=== PATIENT | male | born 1950 | race Two or more races ===

== ENCOUNTER 2025-09-02 11:01 | Inpatient (IN) | payer OTHER, SELFPAY ==
[2025-09-02] VITALS (17 sets, daily range): BP systolic 117–148; BP diastolic 70–86; BMI 25.9; BMI 25.7
[2025-09-02 11:30] LABS: Glucose - Point of Care 145 mg/dl (70-99)
[2025-09-02] MEDS: NORMOSOL-R/PLASMALYTE-A 1000 IV (11:30)
[2025-09-02] MEDS: HEPARIN 5000 UNITS SC (11:36)
[2025-09-02] MEDS: TYLENOL 1000 MG PO (11:37)
[2025-09-02] MEDS: NEURONTIN 300 MG PO (11:37)
[2025-09-02 16:38] LABS: Glucose - Point of Care 199 mg/dl (70-99)
--- NOTE | 2025-09-02 16:39 | HPS.HSE ---
Family Physician
-
Family Physician: Nba Langston
Chief Complaint
-
elective liver resection
History of Present Illness
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
disease on subseqent imaging. During surgery was found to have liver nodule that was indeterminate for malignancy, so had partial liver resection.
Medical History
Past Medical History
Past Medical History: Reports Other
Additional Past Medical History:
see above
Past Surgical History: Reports Other
Additional Past Surgical History:
see above
Social History
Tobacco: Non-smoker
Alcohol: None
Drug: None
Family History
Family History: Not pertinent
Allergies / Home Medications
Allergies reflects when Allergies were last updated in [facility].
Home Medications with original date entered in [facility]
Allergy/Medication List:
Allergies
Allergy/AdvReac Type Severity Reaction Status Date / Time
No Known Allergies Allergy Verified 09/02/25 11:46
Home Medications
Fish Oil 1 cap PO DAILY High Cholesterol 08/26/25
amlodipine 5 mg tablet 5 mg PO DAILY Blood Pressure 08/26/25
aspirin 81 mg tablet,delayed release 81 mg PO DAILY Blood Clot Prevention/Tx 08/26/25
atorvastatin 10 mg tablet 10 mg PO HS High Cholesterol 08/26/25
carvedilol 25 mg tablet 25 mg PO BID Blood Pressure 08/26/25
colchicine 0.6 mg tablet 0.6 mg PO DAILY Gout 08/26/25
empagliflozin 10 mg tablet (Jardiance) 10 mg PO DAILY Diabetes 08/26/25
hydrochlorothiazide 25 mg tablet 25 mg PO DAILY Blood Pressure 08/26/25
losartan 100 mg tablet 100 mg PO DAILY Blood Pressure 08/26/25
metformin 500 mg tablet 500 mg PO BID Diabetes 08/26/25
vitamin E 1 cap PO BID Supplement 08/26/25
Review of Systems
-
History Source: Patient
A 12 point ROS was completed and negative except as noted: Yes
Constitutional: Reports No Symptoms
Physical Exam
Vital Signs
Vital Signs
Temp Pulse Resp BP Pulse Ox
98.3 F 63 18 140/83 99
09/02/25 11:17 09/02/25 11:17 09/02/25 11:17 09/02/25 11:17 09/02/25 11:17
Physical Exam
General: No Apparent Distress, Comfortable and Conversant
HEENT: NormoCephalic, Anicteric and Moist mucous membranes
Respiratory: Clear; No Wheezes or Crackles
Cardiac: S1/S2 and Regular Rhythm; No Tachycardia
GI: Non Tender, Distended and Other (dry dressing upon incision area)
Genito-urinary: Clear Urine and Heller
Musculoskeletal: No Clubbing, No Cyanosis and No Edema
Skin: Warm; No Rash or Jaundice
Neuro: Awake, Alert, Oriented and AO x 3
Psych: Calm
Data Reviewed
-
Old Records: Reviewed
Impression/Plan
-
A/P:
#Gallbladder CA s/p cholecystectomy
#Partial liver resection
postOP monitoring for bleeding
H&H q12h or more frequent if deterioration
ICU monitoring for 24h
PAth pending
Abx as per surgical service
Pain mgmt
Heller to remove SMITHA
#DM type 2 with nephropathy
Accuchecks, insulin SS, DM diet and hold oral antiglycemic
Check Hgba1c
#Essential HTN
#Gout
#MR
#CR
#BPH
Cont home meds
DVT ppx SCDs due to high risk bleeding surgery
Full code
I have spent at least 78min reviewing chart, test results, communication with consultants and providing direct patient care
[2025-09-02] MEDS: NOVOLOG vial 1 UNITS SC (17:28)
[2025-09-02 17:39] LABS: Hematocrit 34.9 % (39.0-52.0); Hemoglobin 11.8 g/dL (13.0-18.0); Mean Corp Hgb Conc. 33.8 g/dL (33.0-37.0); Mean Corpuscular Volume 84.7 fL (80.0-94.0); Nucleated Red Blood Cells % 0 % (-); Platelet Count 173 10^3/uL (130-400); Red Cell Dist. Width 15.8 % (11.5-14.5)
[2025-09-02 17:46] LABS: ALT (SGPT) 86 U/L (0-50); AST (SGOT) 188 U/L (17-59); Albumin 3.7 g/dl (3.5-5.0); Alkaline Phosphatase 57 U/L (38-126); Blood Urea Nitrogen 34 mg/dl (9-20); Calcium 8.7 mg/dl (8.4-10.2); Carbon Dioxide 23 mmol/L (22-30); Chloride 103 mmol/L (98-107); Estimated Creatinine Clearance 61 ml/min; Glucose 172 mg/dl (70-99); INR 1.02; Magnesium 1.7 mg/dl (1.6-2.3); PT 13.9 Sec (11.4-14.6); Potassium 4.2 mmol/L (3.5-5.1); Sodium 133 mmol/L (135-145); Total Protein 6.4 g/dl (6.3-8.2); eGFR > 60.00
[2025-09-02 17:47] LABS: APTT 29.3 Sec (23.4-35.0)
--- NOTE | 2025-09-02 19:32 | PTCARENOTE ---
received pt from PACU at 1800 , NSR on monitor , BP adequate with edelmira , 02 2L with sat 98% , mid line abd dressing with small amt of shadowing , dry and intact , pt denies co pain , labs noted , pt to remain NPO as per surgery , pt son at bedside
[2025-09-02] MEDS: COREG 25 MG PO (19:49)
[2025-09-02] MEDS: ZOSYN 50 IV (19:49)
[2025-09-02] MEDS: D5/0.9% SODIUM CHLORIDE 1000 IV (19:50)
[2025-09-02 19:56] LABS: Glucose - Point of Care 168 mg/dl (70-99)
[2025-09-02] MEDS: LIPITOR 10 MG PO (23:02)
[2025-09-02 23:04] LABS: Glucose - Point of Care 228 mg/dl (70-99)
[2025-09-03] VITALS: BP 109/74
[2025-09-03] MEDS: NOVOLOG FLEXPEN-LOW RESISTANCE 2 UNITS SC (00:05)
[2025-09-03] MEDS: ZOSYN 50 IV ×4 (00:06→18:34)
[2025-09-03 04:00] VITALS: BP 117/75
[2025-09-03 04:28] LABS: Hematocrit 35.9 % (39.0-52.0); Hemoglobin 12.1 g/dL (13.0-18.0); Mean Corp Hgb Conc. 33.7 g/dL (33.0-37.0); Mean Corpuscular Volume 86.5 fL (80.0-94.0); Nucleated Red Blood Cells % 0 % (-); Platelet Count 190 10^3/uL (130-400); Red Cell Dist. Width 15.9 % (11.5-14.5)
[2025-09-03 04:31] LABS: INR 1.10; PT 14.7 Sec (11.4-14.6)
[2025-09-03 04:32] LABS: APTT 27.2 Sec (23.4-35.0)
[2025-09-03 04:50] LABS: ALT (SGPT) 98 U/L (0-50); AST (SGOT) 166 U/L (17-59); Albumin 3.8 g/dl (3.5-5.0); Alkaline Phosphatase 53 U/L (38-126); Blood Urea Nitrogen 32 mg/dl (9-20); Calcium 8.9 mg/dl (8.4-10.2); Carbon Dioxide 22 mmol/L (22-30); Chloride 106 mmol/L (98-107); Estimated Creatinine Clearance 50 ml/min; Glucose 200 mg/dl (70-99); Potassium 4.4 mmol/L (3.5-5.1); Sodium 136 mmol/L (135-145); Total Protein 6.4 g/dl (6.3-8.2); eGFR > 60.00
--- NOTE | 2025-09-03 05:29 | PTCARENOTE ---
Initial assessment as documented. Pt continues to deny pain. L radial a-line zeroed and transduced, correlates w/ cuff pressure. RA, using home CPAP overnight. Mantilla with approx 50-70ml/hr yellow urine. Midline abdominal aquacel with
shadowing--unchanged. Safe environment maintained, call slater within reach.
[2025-09-03 05:32] LABS: Glucose - Point of Care 258 mg/dl (70-99)
[2025-09-03] MEDS: NOVOLOG FLEXPEN-LOW RESISTANCE 3 UNITS SC (05:53)
[2025-09-03 06:00] VITALS: BMI 26.1
[2025-09-03] MEDS: ROXICODONE 5 MG PO ×2 (06:04→10:27)
--- NOTE | 2025-09-03 06:29 | PTCARENOTE ---
Pt c/o abdominal pain with movement, 7/10, PRN oxy given as ordered.
--- NOTE | 2025-09-03 07:11 | CON.INTV ---
Addendum entered and electronically signed by Kylah So MD 09/03/25 12:41:
- Patient transferring out of ICU
- Laboratory Animal Facility Supervisor service will sign off, please call as needed.
Original Note:
Consultation
Consultation Request
Date/Time Consultation Requested: 09/02/2025
Date/Time Consultation Performed: 09/03/2025
Medical History
-
Chief Complaint: Cholangiocarcinoma
History of Present Illness:
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 Subsequent workup included extensive imaging not suggestive of metastatic disease. He was evaluated by surgery
service as an outpatient and was recommended to have partial liver resection as well as lymph node dissection. Patient was admitted to the hospital for above procedure on 09/02 and postprocedure, was admitted to ICU. Laboratory Animal Facility Supervisor consult was
requested for further input.
Past medical history. Diabetes, hypertension, hyperlipidemia, sleep apnea, hepatic steatosis, dilation of ascending aortic area, chronic kidney disease, history of hematuria.
Surgical history. Cholecystectomy, left cataract surgery, hernia repair.
Family history. No reported history of lung cancer.
Social history. No history of smoking.
Allergies / Home Medications
Allergies
Allergy/AdvReac Type Severity Reaction Status Date / Time
No Known Allergies Allergy Verified 09/02/25 11:46
Home Medications
�Medication �Instructions �Recorded �Confirmed �Last Taken �Type
Fish Oil 1 cap PO DAILY High Cholesterol 08/26/25 09/02/25 08/19/25 History
amlodipine 5 mg tablet 5 mg PO DAILY Blood Pressure 08/26/25 09/02/25 09/02/25 08:00 History
aspirin 81 mg tablet,delayed 81 mg PO DAILY Blood Clot 08/26/25 09/02/25 08/26/25 History
release Prevention/Tx
atorvastatin 10 mg tablet 10 mg PO HS High Cholesterol 08/26/25 09/02/25 09/01/25 22:00 History
carvedilol 25 mg tablet 25 mg PO BID Blood Pressure 08/26/25 09/02/25 09/02/25 08:00 History
colchicine 0.6 mg tablet 0.6 mg PO DAILY Gout 08/26/25 09/02/25 09/01/25 08:00 History
empagliflozin 10 mg tablet 10 mg PO DAILY Diabetes 08/26/25 09/02/25 08/30/25 History
(Jardiance)
hydrochlorothiazide 25 mg tablet 25 mg PO DAILY Blood Pressure 08/26/25 09/02/25 09/01/25 08:00 History
losartan 100 mg tablet 100 mg PO DAILY Blood Pressure 08/26/25 09/02/25 09/01/25 08:00 History
metformin 500 mg tablet 500 mg PO BID Diabetes 08/26/25 09/02/25 09/01/25 22:00 History
vitamin E 1 cap PO BID Supplement 08/26/25 09/02/25 08/19/25 History
Review of Systems
-
Hematologic/Lymphatic: Other (All 14 systems reviewed and negative except as stated above in the history of present illness.)
Vitals / Labs / Diagnostic Testing
Vital Signs
Temp Pulse Resp BP Pulse Ox
98.2 F 64 17 117/75 98
09/03/25 03:15 09/03/25 06:00 09/03/25 06:00 09/03/25 04:00 09/03/25 06:00
Lab Data
09/03/25 04:06
09/03/25 04:06
Laboratory Results
09/02/25 09/02/25 09/02/25
17:19 17:19 17:19
PT 13.9 Cancelled
INR 1.02 Cancelled
APTT 29.3
09/02/25 09/03/25
17:19 04:06
PT 14.7 H
INR 1.10
APTT Cancelled 27.2
Microbiology
09/02/25 Unknown Gallbladder Gram Stain - Preliminary
Diagnostic Testing:
Physical Exam
-
HEENT: Normocephalic
Cardiovascular: S1/S2
Respiratory: Clear and Non-Labored Respirations
GI: Soft
Neurology: Awake
Skin: Warm
General: Comfortable
Assessment
-
Patient is a 75-year-old male with recent diagnosis of cholangiocarcinoma, s/p partial liver resection, by surgery service, POD #1
Continue observation following procedure
Follow serial exam and H/H
ASA and statin on board
Follow BP monitoring and parameters as set by primary team
Cardiac history reviewed
Monitor on telemetry
Pain control per protocol
RASS goal 0
No prior known history of pulmonary disease
No prior PFTs for review
Encouraged IS
Diet advancement per protocol
Aspiration precautions
GI prophylaxis: None
Cr reviewed. Slight rise noted, 1.0 > 1.2. Hold HCTZ and Losartan
Critical I/Os
Replete electrolytes as needed
No signs/symptoms suspicious for infectious etiology at this time
Has been on Zosyn post surgery.
Follow temperatures/CBC
Hb and platelets postoperatively stable. 11.8 > 12.1
DVT prophylaxis: SCDs. Defer to surgery service
Other medical diagnoses:
- Mitral valve regurgitation, trace
- HTN
- Ascending aortic root dilation
- HLD
- DM
- CR
Critical Care time [56] mins -- The patient is admitted for acute critical illness for the treatment of vital organ failure and/or prevention of further life-threatening conditions. Total care includes time spent in review of history, physical exam,
medications, hemodynamic/ventilator parameters, laboratory data, imaging and discussion with house staff, pharmacy, respiratory therapy, plumber's assistant, and nursing
Data:
ECHO 05/2021: There is normal left ventricular systolic function with an ejection fraction of
60-65% there is grade 1 diastolic dysfunction
There is normal chamber size.
There is aortic valve sclerosis, trace mitral regurgitation, mild tricuspid
regurgitation, and trace pulmonic regurgitation.
There is atherosclerosis present in the aortic root.
The ascending aorta is dilated at 4.3 cm
There is an echo lucency present in the liver measuring a diameter of 4 cm
which may represent a liver cyst however recommend clinical correlation and
evaluation.
--- NOTE | 2025-09-03 08:00 | PTCARENOTE ---
Assumed care of patient. Patient AAOx3, pleasant. SR on monitor. L radial A-line in place. Patient on room air w/ POX 98%. Patient's abdomen soft minimally tender/distended. Patient midline aquacell dressing with shadowing - mildly increased.
Patient's abdominal pain approximately 3-4. Patient's barrett draining clear yellow urine. Patient w/ 18G RFA w/ D5NS @75 mls/hr and 18G LFA.
[2025-09-03 08:37] LABS: Glycohemoglobin (HgbA1c) 5.9 % (4.0-5.6)
[2025-09-03] MEDS: COLCHICINE 0.6 MG PO (08:51)
[2025-09-03] MEDS: ASPIR LOW (ENTERIC COATED) 81 MG PO (08:51)
[2025-09-03] MEDS: COREG 25 MG PO ×2 (08:52→19:53)
[2025-09-03] MEDS: NORVASC 5 MG PO (08:52)
--- NOTE | 2025-09-03 10:27 | W.PN.HOSP.TC ---
Addendum entered and electronically signed by Ha Rodriguez MD 09/03/25 10:30:
#Transaminitis 2/2 liver resection
follow LFT
Original Note:
Today's Communication/Plan
-
further mgmt as per surgical service
Assessment / Plan
Assessment / Plan
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
disease on subsequent imaging. During surgery was found to have liver nodule that was indeterminate for malignancy, so had partial liver resection.
A/P:
#Gallbladder CA s/p cholecystectomy
#Partial liver resection
postOP monitoring for bleeding
H&H q12h or more frequent if deterioration - remained stble
ICU monitoring for 24h
PAth pending
Abx as per surgical service
Pain mgmt
Heller to remove SMITHA
#DM type 2 with nephropathy
Accuchecks, insulin SS, DM diet and hold oral antiglycemic
Check Hgba1c
#Essential HTN
#Gout
#MR
#CR
#BPH
Cont home meds
DVT ppx SCDs due to high risk bleeding surgery
Full code
I have spent at least 51min reviewing chart, test results, communication with consultants and providing direct patient care
Anticipated Discharge: > 48 hours
Subjective/Interval History
-
Date of Service: September 03, 2025
Objective Data
-
Labs:
Laboratory Results
09/03/25
04:06
WBC 7.1
Hgb 12.1 L
Hct 35.9 L
Plt Count 190
PT 14.7 H
INR 1.10
APTT 27.2
Sodium 136
Potassium 4.4
Chloride 106
Carbon Dioxide 22
BUN 32 H
Creatinine 1.2
Glucose 200 H
Calcium 8.9
Total Bilirubin 0.8
AST 166 H
ALT 98 H
Alkaline Phosphatase 53
Vital Signs:
Vital Signs
Temp Pulse Resp BP Pulse Ox
98.1 F 66 16 117/75 98
09/03/25 08:00 09/03/25 09:30 09/03/25 09:30 09/03/25 04:00 09/03/25 09:30
I&O
09/02/25 09/03/25 09/04/25
06:59 06:59 06:59
Intake Total 1125 / 1200 225 / 225
Output Total 1095 / 1095 385 / 385
Balance 30 / 105 -160 / -160
Review of Systems
-
History Source: Patient
All other systems: Reviewed and negative
Physical Exam
-
General: No Apparent Distress
HEENT: Normocephalic
Respiratory: Clear to Auscultation
Cardiac: Regular Rhythm
GI: Soft, Nondistended and Tender (at the incision site )
Musculoskeletal: No Clubbing, No Cyanosis and No Edema
Neuro: Awake, Alert, Oriented and AO x 3
Psych: Calm
[2025-09-03] MEDS: NSS 1000 IV (10:29)
--- NOTE | 2025-09-03 12:26 | W.PN.GENERIC ---
Assessment / Plan
-
S/p Partial liver resection of gallbladder cancer. POD#1
Stable
Will transfer the pt to the surgical floor
Start clears and advance as abhishek
OOB and ambulate
Await path results
Physician Progress Note
Subjective
No complaints. Some incisional pain when moving. No N/V
Objective
Vital Signs
Temp Pulse Resp BP Pulse Ox
98.7 F 66 16 117/75 98
09/03/25 12:00 09/03/25 09:30 09/03/25 09:30 09/03/25 04:00 09/03/25 09:30
Lab Results
09/03/25 04:06
09/03/25 04:06
Abdomen - incision is CDI. Soft and ND
[2025-09-03 12:48] LABS: Glucose - Point of Care 152 mg/dl (70-99)
[2025-09-03] MEDS: TORADOL 15 MG IV ×2 (12:53→18:33)
[2025-09-03 13:03] VITALS: BP 123/73
--- NOTE | 2025-09-03 13:21 | CM ---
Initial assessment completed with patient with daughter and son in room. Patient lives alone in a 1 story plus basement home with ramp to enter. HAND [employer]MBRE[employer]IP[employer] patient was independent in ADL's and ambulation with a SPC, drives. Has and uses a CPAP. No in-home
services. No HC POA, AD paperwork provided. No VA benefits. No psychiatric hospitalizations. PCP is Dr. Nba Langston. Pharmacy is [facility] in [place]. Discharge POC: Anticipate home with NN vs HH RN.
[2025-09-03] MEDS: NOVOLOG FLEXPEN-LOW RESISTANCE SC (14:18)
--- NOTE | 2025-09-03 14:31 | PTCARENOTE ---
Dr. Mosley at bedside and updated patient/family. Patient's aquacell dressing removed by Dr. Mosley - ian approximated. Patient's barrett removed - due to void @ 1930. Patient's A-Line removed. Patient downgraded to [facility] level of care.
[2025-09-03 15:51] VITALS: BP 138/71
[2025-09-03 17:19] LABS: Glucose - Point of Care 134 mg/dl (70-99)
--- NOTE | 2025-09-03 19:06 | PTCARENOTE ---
Patient transferred to [address] [place] [address] post partial liver resection for cancer.The patient is alert and oriented.He rates his pain at a 4 out of 10.Abdominal incision open to air with ian.The patient's daughter is with him.We talked about how to order
his meals.The patient is in his bed with the call slater in reach.
[2025-09-03] MEDS: GLUCOPHAGE 500 MG PO (19:53)
[2025-09-03] MEDS: LIPITOR 10 MG PO (22:12)
[2025-09-03 23:10] VITALS: BP 132/80
[2025-09-04] MEDS: TORADOL 15 MG IV ×4 (00:29→18:33)
[2025-09-04] MEDS: ZOSYN 50 IV ×4 (00:29→18:32)
[2025-09-04 00:35] LABS: Glucose - Point of Care 133 mg/dl (70-99)
[2025-09-04] MEDS: NSS 1000 IV (02:03)
[2025-09-04 07:00] VITALS: BP 135/73
[2025-09-04 07:56] LABS: Glucose - Point of Care 116 mg/dl (70-99)
[2025-09-04] MEDS: NORVASC 5 MG PO (08:00)
[2025-09-04] MEDS: COREG 25 MG PO ×2 (08:00→20:16)
[2025-09-04] MEDS: GLUCOPHAGE 500 MG PO ×2 (08:00→20:16)
[2025-09-04] MEDS: COLCHICINE 0.6 MG PO (08:00)
[2025-09-04 09:18] LABS: Hematocrit 31.8 % (39.0-52.0); Hemoglobin 10.2 g/dL (13.0-18.0); Mean Corp Hgb Conc. 32.1 g/dL (33.0-37.0); Mean Corpuscular Volume 85.5 fL (80.0-94.0); Nucleated Red Blood Cells % 0 % (-); Platelet Count 163 10^3/uL (130-400); Red Cell Dist. Width 16.1 % (11.5-14.5)
[2025-09-04 09:47] LABS: ALT (SGPT) 78 U/L (0-50); AST (SGOT) 75 U/L (17-59); Albumin 3.3 g/dl (3.5-5.0); Alkaline Phosphatase 45 U/L (38-126); Blood Urea Nitrogen 23 mg/dl (9-20); Calcium 8.9 mg/dl (8.4-10.2); Carbon Dioxide 26 mmol/L (22-30); Chloride 108 mmol/L (98-107); Estimated Creatinine Clearance 50 ml/min; Glucose 113 mg/dl (70-99); Potassium 3.9 mmol/L (3.5-5.1); Sodium 139 mmol/L (135-145); Total Protein 5.9 g/dl (6.3-8.2); eGFR > 60.00
[2025-09-04 12:45] LABS: Glucose - Point of Care 128 mg/dl (70-99)
[2025-09-04 15:00] VITALS: BP 136/78
[2025-09-04] MEDS: NSS IV (21:51)
[2025-09-04] MEDS: LIPITOR 10 MG PO (22:07)
[2025-09-04 23:05] VITALS: BP 137/72
[2025-09-05] MEDS: TORADOL 15 MG IV ×3 (00:09→12:08)
[2025-09-05] MEDS: ZOSYN 50 IV ×3 (00:09→12:15)
[2025-09-05 08:00] VITALS: BP 133/69
[2025-09-05] MEDS: NORVASC 5 MG PO (08:34)
[2025-09-05] MEDS: COREG 25 MG PO (08:34)
[2025-09-05] MEDS: GLUCOPHAGE 500 MG PO (08:34)
[2025-09-05] MEDS: COLCHICINE 0.6 MG PO (08:34)
[2025-09-05 08:53] LABS: Glucose - Point of Care 126 mg/dl (70-99)
[2025-09-05 11:45] VITALS: BP 133/71
--- NOTE | 2025-09-05 11:59 | W.DS.TRANS ---
DC Summary - Interface Designer
-
Discharge Instructions:
Discharge Diagnosis/Procedures Liver resection
Diet No restrictions
Activity No strenuous activity,As tolerated
Driving Restrictions Not until seen by your Dr
Bathing Restrictions OK to Shower
Instructions:
Stand-Alone Forms:
Changes to Home Medications: Yes
Discharge Medications:
DC Medications w/original date entered in [employer]
Fish Oil 1 cap PO DAILY High Cholesterol 08/26/25
amlodipine 5 mg tablet 5 mg PO DAILY Blood Pressure 08/26/25
aspirin 81 mg tablet,delayed release 81 mg PO DAILY Blood Clot Prevention/Tx 08/26/25
atorvastatin 10 mg tablet 10 mg PO HS High Cholesterol 08/26/25
carvedilol 25 mg tablet 25 mg PO BID Blood Pressure 08/26/25
colchicine 0.6 mg tablet 0.6 mg PO DAILY Gout 08/26/25
empagliflozin 10 mg tablet (Jardiance) 10 mg PO DAILY Diabetes 08/26/25
hydrochlorothiazide 25 mg tablet 25 mg PO DAILY Blood Pressure 08/26/25
losartan 100 mg tablet 100 mg PO DAILY Blood Pressure 08/26/25
metformin 500 mg tablet 500 mg PO BID Diabetes 08/26/25
vitamin E 1 cap PO BID Supplement 08/26/25
oxycodone 5 mg tablet 5 mg PO Q4HPRN PRN severe pain 7 days #30 tabs 09/05/25
Home Medication Changes
Pending Results: No
[2025-09-05 12:08] LABS: Glucose - Point of Care 201 mg/dl (70-99)
--- NOTE | 2025-09-05 13:26 | CM ---
CM reviewed chart and noted dc order
Bedside meeting with pt
No dc needs noted
IMM verbally reviewed- copy provided
Son will transport home
Discharge Disposition- home no needs, family transport
--- NOTE | 2025-09-05 13:55 | W.DCSUMMARY ---
Discharge Summary
Discharge Data
Date of Admission: 09/02/25
Date of Discharge: 09/05/25
-
Pending Results: No
Hospital Course
DISCHARGE SUMMARY
NAME: Ronak Hernandez (1950)
ADMISSION DATE: 09/02/2025
DISCHARGE DATE: 09/05/2025
DIAGNOSIS: Gallbladder cancer
PROCEDURE: Exploratory laparotomy and Partial Resection of the hepatic segments IV and V
SURGEON: Gordy Mosley M.D.
HISTORY OF PRESENT ILLNESS:
He is a 75-year-old man who presented to me for a surgical opinion regarding a newly diagnosed gallbladder cancer. He underwent a robotic cholecystectomy for cholecystitis on 06/29/25. The final pathology revealed an incidental 3 cm gallbladder
cancer, invading the perimuscular connective tissue on the peritoneal side without involving the serosa or the liver. The cystic margin was negative for cancer. Subsequently, he had a brain MRI and CT of the chest, abdomen, and pelvis, demonstrating
no evidence of metastatic disease. I reviewed the CT and MRI scan films and the official reading. He denied fevers, chills, chest pain, dyspnea, cough, or recent weight loss. However, he complained of fatigue and intermittent dizziness. We reviewed
the films and the official readings in my office. He presented today for resection of the liver bed and portal lymph node dissection.
PAST MEDICAL HISTORY: HTN, DM2, MVR, and CKD
ALLERGIES: NKDA.
MEDICATIONS:
Amlodipine 5 mg tablet daily
Aspirin 81 mg 1 tablet (s) every day by oral route.
atorvastatin 10 mg tablet daily
Carvedilol 25 mg tablet twice a day.
Colchicine 0.6 mg tablet daily
Jardiance 10 mg tablet daily
Losartan 100 mg/hydrochlorothiazide 25 mg tablet daily
Metformin 500 mg tablet twice daily
REVIEW OF SYSTEMS: Unremarkable.
SOCIAL HISTORY: No EtOH or tobacco use.
FAMILY HISTORY: Non-contributory.
PHYSICAL EXAMINATION:
He was anicteric. The heart had a regular rhythm and rate. The chest was clear bilaterally. He had no cervical, supraclavicular, or axillary lymphadenopathy. He had a well-healed periumbilical incision.
HOSPITAL COURSE:
He presented to the hospital and underwent uneventful surgery. Intraoperatively, we found a small nodule in the right hepatic lobe. This was excised and sent to a pathology during the surgery, which revealed findings suspicious for metastatic
gallbladder cancer. However, the pathologist could not make the diagnosis definitively. Therefore, a decision was made to proceed with resection of the gallbladder bed and not to perform portal lymph node dissection due to significant scarring from
his previous cholecystitis and surgery. The patient was transferred to the surgical floor, where he recovered well without any problems. His diet was advanced to a regular diet. He was discharged home on post-op day number two.
His condition on discharge was stable.
Discharge Plan
-
Patient Disposition: Home (Routine Discharge)
Discharge Diagnosis/Procedures: Liver resection
Condition: Fair
Diet: No restrictions
Activity: As tolerated and No strenuous activity
Driving Restrictions: Not until seen by your Dr
Bathing Restrictions: OK to Shower
Activity Restrictions/Additional Instructions:
Postoperative appointment in 10-14 days ([id number])
The prescription for pain medication Oxycodone was sent to the patient's pharmacy.
Referrals:
Nba Langston MD [Family Provider]
Prescriptions:
New
oxycodone 5 mg Tablet
5 mg PO Q4HPRN PRN (Reason: severe pain) 7 Days Qty: 30 0RF
Continued
metformin 500 mg Tablet
500 mg PO BID
carvedilol 25 mg Tablet
25 mg PO BID
atorvastatin 10 mg Tablet
10 mg PO HS
amlodipine 5 mg Tablet
5 mg PO DAILY
aspirin 81 mg Tablet,Delayed Release (Dr/Ec)
81 mg PO DAILY
hydrochlorothiazide 25 mg Tablet
25 mg PO DAILY
colchicine 0.6 mg Tablet
0.6 mg PO DAILY
losartan 100 mg Tablet
100 mg PO DAILY
Jardiance 10 mg Tablet
10 mg PO DAILY
Fish Oil
1 cap PO DAILY
vitamin E
1 cap PO BID
Discharge Orders:
Discharge Patient (As Directed); Ordered 09/05/25
Ordered By: Gordy Mosley
Discharge Date and Time
Print Language: TAJIK
[2025-09-05] MEDS: ROXICODONE 5 MG PO (14:31)
--- NOTE | 2025-09-05 17:59 | OR.RPT ---
Operative Report
Operative Report
Date of Operation: September 02, 2025
Preoperative Diagnosis: Gallbladder cancer - C23
Postoperative Diagnosis: Same
Surgeon: Gordy Mosley M.D.
Operation: Liver Partial Lobectomy - 21628
Anesthesia: General Anesthesia
Estimated Blood Loss: Minimal
Drains: none
Specimen: Segments V and IVbB and right liver tumor
Findings: Right liver tumor with probable metastatic cancer
Complications: None
Procedure:
The patient was taken to the operating room and placed in the usual supine position. After adequate general endotracheal anesthesia was established, the patient's abdomen was prepped and draped in the usual sterile fashion. At this time, a midline
incision was made with a #10 blade, and this was taken through the skin into the subcutaneous tissue. The fascia was divided, and the abdomen was entered. Upon entering the abdominal cavity, an exploration was performed. There were significant
adhesions involving the gallbladder bed and the stomach. The stomach was taken from the gallbladder bed, and a big pocket of purulent fluid was found, which was drained. There was significant scarring involving the duodenum and portal structures
from his previous cholecystitis and surgery. Next, the liver was palpated, and an intraoperative ultrasound was performed. A 1 cm nodule in the liver segment VIII was identified and excised, and sent to the pathology department, which showed
findings suspicious for metastatic cancer. The pathologist was not able to definitively confirm the diagnosis. For this reason, a decision was made to resect the liver segments V and IVb and not perform portal lymph node dissection, given the dense
scar tissue. The liver resection was performed using an [employer] bipolar radiofrequency energy device by transecting the liver parenchyma, and the vessels were carefully ligated using a Harmonic Scalpel. The big vessels were also ligated with #3-0
chromic suture. Hemostasis was performed by spraying the defect with Tisseel. The abdomen was copiously irrigated with about 3 L of sterile normal saline solution.
At this time, the incision was closed. The posterior fascia was approximated with 1 Vicryl in a running fashion. The muscles were reapproximated with a 1 Vicryl in a running fashion. The anterior fascia was also approximated with 1 Vicryl in a
running fashion. The subcutaneous tissue was reapproximated with #3-0 Vicryl in a running fashion. The skin was approximated with #4-0 Monocryl in a running subcuticular fashion. The Steri-Strips and sterile dressings were applied. The patient was
extubated without any problems. The patient was transferred to the recovery room. The final needle, sponge, and instrument counts were correct.
== END 2025-09-05 14:48 | disposition home or self-care (01) | DRG 422 ==
LOC: 2 SOUTH 11:01
PROVIDERS: Internal Medicine; ADMITTING PHYSICIAN Surgery; CONSULT PHYSICIAN Internal Medicine; FAMILY PHYSICIAN Internal Medicine
PROC: 0FB20ZX Excision of Left Lobe Liver, Open Approach, Diagnostic (ICD-10-PCS; 2025-09-05)
PROC: 0FB10ZX Excision of Right Lobe Liver, Open Approach, Diagnostic (ICD-10-PCS; 2025-09-05)
DX: C23 Malignant neoplasm of gallbladder (principal); K82.8 Other specified diseases of gallbladder; E11.22 Type 2 diabetes mellitus with diabetic chronic kidney disease; I12.9 Hypertensive chronic kidney disease with stage 1 through stage 4 chronic kidney disease, or unspecified chronic kidney disease; N18.9 Chronic kidney disease, unspecified; G47.33 Obstructive sleep apnea (adult) (pediatric); N40.0 Benign prostatic hyperplasia without lower urinary tract symptoms; Z79.82 Long term (current) use of aspirin; Z79.84 Long term (current) use of oral hypoglycemic drugs; Z79.899 Other long term (current) drug therapy; Z90.49 Acquired absence of other specified parts of digestive tract; Z98.42 Cataract extraction status, left eye
CPT/HCPCS: 80053; 82962; 83036; 83735; 83880; 85025; 85610; 85730; 86850; 86900; 86901; 87070; 87075; 87205; 88307; 88331; 88341; 88342; C9250